=== PATIENT | male | born 1925 | race Caucasian/White ===

== ENCOUNTER 2016-11-08 12:00 | Emergency (ER) | payer MEDICARE, BC ==
[~2016-11-08] VITALS: Ht 182.9 cm; Wt 90.7 kg
[~2016-11-08 12:00] MED LIST: ATOR10TA PO; LISI10TA2 PO; TAMS0.4C97 PO
[2016-11-08 12:48] LABS: BASO # 0.1 x10^3/uL (0.0-0.2); BASO % 1 % (0-3); EOS # 0.3 x10^3/uL (0.0-0.7); EOS % 4 % (0-3); HEMATOCRIT 39.8 % (39.0-53.0); HEMOGLOBIN 13.5 g/dL (13.0-17.5); LYMPH # 1.3 x10^3/uL (1.0-4.8); LYMPH % 15 % (24-48); MEAN CORPUSCULAR HEMOGLOBIN 31 pg (25-35); MEAN CORPUSCULAR HGB CONC 34 g/dL (31-37); MEAN CORPUSCULAR VOLUME 93 fL (79-100); MONO # 0.6 x10^3/uL (0.0-1.1); MONO % 7 % (0-9); NEUT # 6.5 x10^3uL (1.8-7.7); NEUT % 74 % (31-73); PLATELET COUNT 185 x10^3/uL (140-400); RED BLOOD COUNT 4.29 x10^6/uL (4.30-5.70); RED CELL DISTRIBUTION WIDTH 13.4 % (11.5-14.5); WHITE BLOOD COUNT 8.9 x10^3/uL (4.0-11.0)
[2016-11-08 13:04] LABS: ALBUMIN 3.6 g/dL (3.4-5.0); CALCIUM 8.6 mg/dL (8.5-10.1); CREATININE 1.8 mg/dL (0.7-1.3); GFR 35.7; POTASSIUM 4.5 mmol/L (3.5-5.1); TOTAL PROTEIN 7.2 g/dL (6.4-8.2)
[2016-11-08 13:19] LABS: TOTAL BILIRUBIN 0.4 mg/dL (0.2-1.0)
--- NOTE | 2016-11-08 13:31 | ED.ADGEN ---
Past History Past Medical History: No Pertinent History Past Surgical History: Appendectomy, Knee Replacement Alcohol Use: None Drug Use: None Adult General Chief Complaint Chief Complaint Left hip/pelvic pain HPI HPI Patient is a 89-year-old male presents with left pelvic pain 5 days after accidentally tripping over a garbage can and landing on her left hip. Patient denies pain at rest but reports pain with weightbearing. Denies hitting his head or any other injury. Patient seen at PCPs office and had outpatient x-ray suspicious of fracture and was sent to the ER for further evaluation and treatment. Patient denies other symptoms or complaints at this time. Review of Systems Review of Systems Review symptoms as prescribed. All other review symptoms are negative. Allergies Allergies Allergies Coded Allergies Type Severity Reaction Last Updated Verified No Known Drug Allergies 08/11/13 No Physical Exam Physical Exam Constitutional: Well developed, well nourished, no acute distress, non-toxic appearance. HENT: Normocephalic, atraumatic, bilateral external ears normal, oropharynx moist, no oral exudates, nose normal. Eyes: PERRLA, EOMI, conjunctiva normal, no discharge. Neck: Normal range of motion, no tenderness, supple, no stridor. Cardiovascular:Heart rate regular rhythm, no murmur. Lungs & Thorax: Bilateral breath sounds clear to auscultation. Abdomen: Bowel sounds normal, soft, no tenderness, no masses, no pulsatile masses. Skin: Warm, dry, no erythema, no rash. Extremities: No tenderness, left hip, soft tissue tenderness, no deformity rotation or leg shortening. No pain on range of motion. Skin tear right tricep, multiple healing abrasions to knees. Neurologic: Alert and oriented X 3, lower extremity, no motor weakness or loss of sensation. Psychologic: Affect normal, judgement normal, mood normal. Current Patient Data Vital Signs Vital Signs Date Time Temp Pulse Resp B/P Pulse Ox O2 Delivery O2 Flow Rate FiO2 11/08/16 12:00 97.0 75 20 94 Room Air Lab Results Laboratory Tests Test 11/08/16 12:24 White Blood Count 8.9x10^3/uL (4.0-11.0) Red Blood Count 4.29x10^6/uL (4.30-5.70) L Hemoglobin 13.5g/dL (13.0-17.5) Hematocrit 39.8% (39.0-53.0) Mean Corpuscular Volume 93fL (79-100) Mean Corpuscular Hemoglobin 31pg (25-35) Mean Corpuscular Hemoglobin Concent 34g/dL (31-37) Red Cell Distribution Width 13.4% (11.5-14.5) Platelet Count 185x10^3/uL (140-400) Neutrophils (%) (Auto) 74% (31-73) H Lymphocytes (%) (Auto) 15% (24-48) L Monocytes (%) (Auto) 7% (0-9) Eosinophils (%) (Auto) 4% (0-3) H Basophils (%) (Auto) 1% (0-3) Neutrophils # (Auto) 6.5x10^3uL (1.8-7.7) Lymphocytes # (Auto) 1.3x10^3/uL (1.0-4.8) Monocytes # (Auto) 0.6x10^3/uL (0.0-1.1) Eosinophils # (Auto) 0.3x10^3/uL (0.0-0.7) Basophils # (Auto) 0.1x10^3/uL (0.0-0.2) Sodium Level 141mmol/L (136-145) Potassium Level 4.5mmol/L (3.5-5.1) Chloride Level 107mmol/L (98-107) Carbon Dioxide Level 29mmol/L (21-32) Anion Gap 5 (6-14) L Blood Urea Nitrogen 27mg/dL (8-26) H Creatinine 1.8mg/dL (0.7-1.3) H Estimated GFR (Cockcroft-Gault) 35.7 BUN/Creatinine Ratio 15 (6-20) Glucose Level 106mg/dL (70-99) H Calcium Level 8.6mg/dL (8.5-10.1) Total Bilirubin 0.4mg/dL (0.2-1.0) Aspartate Amino Transferase (AST) 23U/L (15-37) Alanine Aminotransferase (ALT) 31U/L (16-63) Alkaline Phosphatase 94U/L (46-116) Total Protein 7.2g/dL (6.4-8.2) Albumin 3.6g/dL (3.4-5.0) Albumin/Globulin Ratio 1.0 (1.0-1.7) EKG EKG [] Radiology/Procedures Radiology/Procedures [CT pelvis only: No obvious acute fracture, right inguinal hernia present] Impressions: Left hip pain without radiologic evidence of fracture Course & Med Decision Making Course & Med Decision Making Pertinent Labs and Imaging studies reviewed. (See chart for details) [Basic labs reviewed. Recommend PCP follow-up for reevaluation of hip and review of lab. Case reviewed with Dr. Jacobsen who is aware that patient may require MRI if pain persists.] Final Impression Final Impression [#1 left hip pain #2 chronic renal insufficiency] Problems: Dragon Disclaimer Dragon Disclaimer This electronic medical record was generated, in whole or in part, using a voice recognition dictation system. SILVANO NEWTON DO Nov 08, 2016 13:31
--- NOTE | 2016-11-08 13:31 | RAD ---
CT study of the pelvis without contrast Clinical indications: Left groin pain and pelvic pain for 4 days. Patient fell on Friday, November 04, 2016. Technique: Noncontrast helical CT scanning of the pelvis was performed from the iliac crest down through the perineum. PQRS Compliance Statement: One or more of the following individualized dose reduction techniques were utilized for this examination: 1. Automated exposure control 2. Adjustment of the mA and/or kV according to patient size 3. Use of iterative reconstruction technique Findings: No fracture or osteolytic process or displacement is seen. Fusion of L4 and L5 is seen with anterolisthesis. Retrolisthesis of L5-S1 is seen. Degenerative disc space narrowing and endplate spurring is seen at L3-4 down through L5-S1. A right inguinal hernia is seen. A loop of small bowel is seen extending into the inguinal canal. No obstructive bowel pattern or bowel wall thickening or mesenteric inflammatory change is seen. Sigmoid diverticulosis is seen without diverticulitis. Urinary bladder wall is smooth. Prostate gland is mildly enlarged and indents the floor of the urinary bladder. Transverse dimension of the prostate gland is 5.1 cm. No enlarged pelvic lymphadenopathy is seen. IMPRESSION: No acute fracture. Right inguinal hernia containing a loop of small bowel. No obstructive bowel pattern or inflammatory change or wall thickening is seen here otherwise. Mild enlargement of the prostate gland.
[2016-11-08 14:10] VITALS: BP 141/70
== END 2016-11-08 14:10 | disposition home or self-care (01) ==
LOC: ER 12:00
DX: M25.552 Pain in left hip (principal); R10.2 Pelvic and perineal pain; N18.9 Chronic kidney disease, unspecified; W18.09XA Striking against other object with subsequent fall, initial encounter; Y93.89 Activity, other specified; Y99.8 Other external cause status; Y92.89 Other specified places as the place of occurrence of the external cause
CPT/HCPCS: 36415; 72192; 80053; 85027; 99285-25

== ENCOUNTER 2017-01-18 09:31 | Emergency (ER) | payer MEDICARE, BC ==
--- NOTE | 2017-01-18 09:52 | PHYS DOC ---
Past History Past Medical History: Other Additional Past Medical Histor: patient does have a history of foot drop Past Surgical History: Appendectomy, Knee Replacement Alcohol Use: None Drug Use: None Adult General Chief Complaint Chief Complaint: ABDOMINAL PAIN [facility] This is a pleasant 89-year-old male with a history of appendicitis removed by appendectomy and hernia in the past presents with lower abdominal pain that began this morning while going to [employer]. The pain is relatively constant but does wax and wane with no complete resolution in the left lower right lower quadrant. Is septic as achy pain sharp stabbing waves. There is no radiation to the back there is no UTI symptoms no diarrhea. Patient does have a history of constipation and urinary incontinence secondary to bladder issues. She recent trauma, UTI symptoms, fevers, chills, or vomiting. He does tell us that he is very nauseated. He denies any chest pain, shortness of breath, lightheaded dizziness did become very diaphoretic with away the pain. He denies any prior symptoms like this in the past. Appetite has been normal he actually ate breakfast consisting of [employer] this morning. Review of Systems Review of Systems Constitutional: Denies fever or chills [] Eyes: Denies change in visual acuity, redness, or eye pain [] HENT: Denies nasal congestion or sore throat [] Respiratory: Denies cough or shortness of breath [] Cardiovascular: No additional information not addressed in HPI [] GI: He does complain of nausea, abdominal pain and history of constipation. No diarrhea or loose stools. : Denies dysuria or hematuria [] Musculoskeletal: Denies back pain or joint pain [] Integument: Denies rash or skin lesions [] Neurologic: Denies headache, focal weakness or sensory changes [] Endocrine: Denies polyuria or polydipsia [] Allergies Allergies Allergies Coded Allergies Type Severity Reaction Last Updated Verified No Known Drug Allergies 08/11/13 No Physical Exam Physical Exam Constitutional: Well developed, well nourished, no acute distress, non-toxic appearance. [] HENT: Normocephalic, atraumatic, bilateral external ears normal, oropharynx moist, no oral exudates, nose normal. [] Eyes: PERRLA, EOMI, conjunctiva normal, no discharge. [] Neck: Normal range of motion, no tenderness, supple, no stridor. [] Cardiovascular:Heart rate regular rhythm, no murmur [] Lungs & Thorax: Bilateral breath sounds clear to auscultation [] Abdomen: Bowel sounds present patient's abdomen is very tender in the right lower left lower quadrant with some voluntary guarding no rebound or organomegaly. Patient has noted well-controlled scar from the right prior appendectomy. Large mass noted in the right inguinal crease along with into the scrotum is tender it is firm. This does reproduce some of his discomfort. Skin: Warm, dry, no erythema, no rash. [] Back: No tenderness, no CVA tenderness. [] Extremities: No tenderness, no cyanosis, no clubbing, ROM intact, no edema. [] Neurologic: Alert and oriented X 3, normal motor function, normal sensory function, no focal deficits noted. Except for foot drop as explained in the prior history. On the right side. Psychologic: Affect normal, judgement normal, mood normal. [] Current Patient Data Lab Results Laboratory Tests Test 01/18/17 10:00 01/18/17 11:55 White Blood Count 9.9 x10^3/uL (4.0-11.0) Red Blood Count 4.53 x10^6/uL (4.30-5.70) Hemoglobin 14.0 g/dL (13.0-17.5) Hematocrit 41.6 % (39.0-53.0) Mean Corpuscular Volume 92 fL (79-100) Mean Corpuscular Hemoglobin 31 pg (25-35) Mean Corpuscular Hemoglobin Concent 34 g/dL (31-37) Red Cell Distribution Width 13.9 % (11.5-14.5) Platelet Count 203 x10^3/uL (140-400) Neutrophils (%) (Auto) 79 % (31-73) H Lymphocytes (%) (Auto) 12 % (24-48) L Monocytes (%) (Auto) 6 % (0-9) Eosinophils (%) (Auto) 3 % (0-3) Basophils (%) (Auto) 1 % (0-3) Neutrophils # (Auto) 7.9 x10^3uL (1.8-7.7) H Lymphocytes # (Auto) 1.2 x10^3/uL (1.0-4.8) Monocytes # (Auto) 0.5 x10^3/uL (0.0-1.1) Eosinophils # (Auto) 0.3 x10^3/uL (0.0-0.7) Basophils # (Auto) 0.1 x10^3/uL (0.0-0.2) Sodium Level 144 mmol/L (136-145) Potassium Level 4.2 mmol/L (3.5-5.1) Chloride Level 105 mmol/L (98-107) Carbon Dioxide Level 30 mmol/L (21-32) Anion Gap 9 (6-14) Blood Urea Nitrogen 29 mg/dL (8-26) H Creatinine 1.9 mg/dL (0.7-1.3) H Estimated GFR (Cockcroft-Gault) 33.5 BUN/Creatinine Ratio 15 (6-20) Glucose Level 113 mg/dL (70-99) H Lactic Acid Level 1.7 mmol/L (0.4-2.0) Calcium Level 8.4 mg/dL (8.5-10.1) L Magnesium Level 2.3 mg/dL (1.8-2.4) Total Bilirubin 0.4 mg/dL (0.2-1.0) Aspartate Amino Transferase (AST) 19 U/L (15-37) Alanine Aminotransferase (ALT) 29 U/L (16-63) Alkaline Phosphatase 115 U/L (46-116) Creatine Kinase 51 U/L (39-308) Creatine Kinase MB (Mass) 1.0 ng/mL (0.0-3.6) Creatine Kinase MB Relative Index 2.0 % (0-4) Troponin I Quantitative < 0.017 ng/mL (0-0.055) AX-Sjc-H-Type Natriuretic Peptide 84 pg/mL (0-449) Total Protein 6.7 g/dL (6.4-8.2) Albumin 3.6 g/dL (3.4-5.0) Albumin/Globulin Ratio 1.2 (1.0-1.7) Lipase 125 U/L (73-393) Urine Collection Type Unknown Urine Color Yellow Urine Clarity Clear Urine pH 7.0 Urine Specific [place] 1.015 Urine Protein Neg (NEG-TRACE) Urine Glucose (UA) Neg mg/dL (NEG) Urine Ketones (Stick) Neg mg/dL (NEG) Urine Blood Neg (NEG) Urine Nitrite Neg (NEG) Urine Bilirubin Neg (NEG) Urine Urobilinogen Dipstick 0.2 mg/dL (0.2 mg/dL) Urine Leukocyte Esterase Neg (NEG) Urine RBC 1-2 /HPF (0-2) Urine WBC Occ /HPF (0-4) Urine Squamous Epithelial Cells Occ /LPF Urine Bacteria 0 /HPF (0-FEW) EKG EKG [] Radiology/Procedures Radiology/Procedures [] IMAGING REPORT Signed PATIENT: QUINTON BALL ACCOUNT: [id number] : 1925 LOCATION: ER AGE: 89 SEX: M EXAM STATUS: REG ER ORD. PHYSICIAN: HARSH SANTOS MD REASON: diffuse lower abdominal pain PROCEDURE: CT ABD PELV W/ IV CONTRST ONLY EXAM: CT abdomen/pelvis with contrast. HISTORY: Right abdominal pain. TECHNIQUE: Computed tomography of the abdomen and pelvis was performed after the intravenous administration of 60 mL Omnipaque 300. COMPARISON: 11/08/2016. FINDINGS: Lung windows through the visualized portions of the bases reveal mild interstitial scarring in the bases. 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 Bone windows reveal no suspicious lesions. There is instrumented posterior fusion on the left at L4-5 with laminectomies. There is mild chronic-appearing superior plate compression deformity at L4. There is grade 1 anterolisthesis at L4-5. There is a small hiatal hernia. There is mild intrahepatic biliary dilatation in the anterior segment of the right lobe. The common duct is not dilated. Scattered pancreatic parenchymal calcifications are consistent with chronic pancreatitis. The gallbladder is unremarkable. There are no focal hepatic or splenic lesions. There are peripelvic cysts in the left kidney. The kidneys are mildly atrophic. There are no pathologically enlarged lymph nodes. A moderate right inguinal hernia contains nonobstructed small bowel loops and a small amount of ascites. Scattered small lymph nodes and stranding in the root of the mesentery most likely represent mesenteric vein and lateral. The largest nodes measure up to 12 x 7 mm. A small umbilical hernia contains only fat. The prostate is severely enlarged measuring 6 cm. The appendix is not inflamed. IMPRESSION: 1. Moderate right inguinal hernia contains nonobstructed small bowel loops and a small amount of ascites. 2. Small umbilical hernia containing only fat. 3. Small hiatal hernia. 4. A few pancreatic parenchymal calcifications are consistent with chronic pancreatitis. 5. Mild bilateral renal atrophy. 6. Severe benign prostatic hypertrophy. *One or more of the following individualized dose reduction techniques were utilized for this examination: 1. Automated exposure control. 2. Adjustment of the mA and/or kV according to patient size. 3. Use of iterative reconstruction technique. DICTATED AND SIGNED BY: LUZ ELENA HOLMAN MD DATE: 01/18/17 1209 CC: HARSH SANTOS MD; ANNELIESE COBB MD ~ Course & Med Decision Making Course & Med Decision Making Pertinent Labs and Imaging studies reviewed. (See chart for details) reviewed nursing notes vital signs upon arrival and physical exam as well as history by concern initially was adhesions causing a small bowel obstruction but given the tenderness in the right lower quadrant over his inguinal hernia I'm worried that he might have either have a incarcerated or stringy dated hernia. He'll be given pain medications fluids, nothing by mouth and completed an appropriate workup for abdominal pain. 1105 am Patient tells me that their symptoms given during CC are improved only slightly. We reviewed labs and with patient and any family at bedside. Which revealed only a slight elevated BUN/creatinine likely secondary to chronic dehydration. Patient is orally receiving a fluid of normal saline and pain medications. It is still concerning that patient's pain is still not well controlled despite having multiple doses of pain medications. Patient will go to CT scan for his abdomen and pelvis evaluation. 11:45 AM she since pain is still not improve despite multiple pain medication doses CT abdomen and pelvis although not officially read is concerning for possible right inguinal hernia incarceration. I do not see any Pneumocystis intestinalis the patient's hernia still firm and irreducible. I discussed with family need to transfer. I tried on several occasions to reduce his hernia with direct pressure and pain medications to no success. 12:[address] scan returned demonstrating small umbilical hernia containing only fat, small hiatal hernia, a few pancreatic parenchymal calcifications consistent with chronic pancreatic tenderness, bilateral renal atrophy, and a significant right inguinal hernia containing furnace combustion tester to small bowel loops and a small amount of ascites with no evidence of stangulation or compromise of blood flow. This patient is beginning to form doses of analgesic control without much improvement of his pain. Given how it firm and tender his inguinal hernia is at this time my concern is that it's become incarcerated and will require either surgical or general anesthesia to reduce it. My concern is as well we do not have surgical services here at this facility of the weekend. I would advise family and they have agreed transferred to [facility] with a surgical Ability if they cannot reduce this in 1 hernia would be appropriate. Call to internal medicine 12:25 PM Health Communications Specialist note: IM Dr. Brennan paged at 12:25 Health Communications Specialist called at of the service IM Consult called back at 12:45 will accept as long as GS willing to see Discussed the case I presented and they agreed with admission. Time of acceptance 12:45 Health Communications Specialist note: GS at 12:45 Health Communications Specialist called at of the service Dr. Jacob 1:20 pm happy to see in consultation Consult called back at 1:20 pm Discussed the case I presented and they agreed with admission. Impression: Abdominal pain, hypertension, incarcerated right inguinal hernia Disposition: Discharge transferred to [facility] for general surgery evaluation internal medicine I spent approximately 45-50 minutes working and engaged directly in the patient care providing critical care evaluation this includes but not limited to time spent engaged in work directly related to the individual patients care. I spent time at the bedside, reviewing test results, discussing the case with staff, documenting the medical record and time spent with EMS discussing specific treatment issues when the patient presented and during his evaluation. Dragon Disclaimer Dragon Disclaimer This chart was dictated in whole or in part using Voice Recognition software in a busy, high-work load, and often noisy Emergency Department environment. It may contain unintended and wholly unrecognized errors or omissions. Departure Departure: Impression: Primary Impression: Inguinal hernia Additional Impressions: Incarcerated inguinal hernia, unilateral Abdominal pain Disposition: ADMITTED INPATIENT Condition: GUARDED Referrals: ANNELIESE COBB MD (PCP) Problem Qualifiers HARSH SANTOS MD Jan 18, 2017 09:52
[2017-01-18] MEDS ORDERED: 0.9 % SODIUM CHLORIDE 10 ML DISP.SYRIN. IV PRN (10:00)
[2017-01-18] MEDS ORDERED: IOHEXOL 300 MG/ML 75 ML VIAL. IV ONE (10:00)
[2017-01-18] MEDS: fentaNYL PF 100 MCG/2 ML VIAL IV PRN ×4 (10:00→11:49)
[2017-01-18] MEDS ORDERED: CONTRAST GIVEN MC PRN (10:00)
[2017-01-18] MEDS ORDERED: ONDANSETRON PF 4 MG/2 ML VIAL. IV ONE (10:00)
[2017-01-18] MEDS ORDERED: IV NORMAL SALINE 1,000ML 1,000 ML IV SCH (10:00)
--- NOTE | 2017-01-18 10:00 | EKG ---
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
[2017-01-18 10:12] LABS: BASO # 0.1 x10^3/uL (0.0-0.2); BASO % 1 % (0-3); EOS # 0.3 x10^3/uL (0.0-0.7); EOS % 3 % (0-3); HEMATOCRIT 41.6 % (39.0-53.0); LYMPH # 1.2 x10^3/uL (1.0-4.8); LYMPH % 12 % (24-48); MEAN CORPUSCULAR HEMOGLOBIN 31 pg (25-35); MEAN CORPUSCULAR HGB CONC 34 g/dL (31-37); MEAN CORPUSCULAR VOLUME 92 fL (79-100); MONO # 0.5 x10^3/uL (0.0-1.1); MONO % 6 % (0-9); NEUT # 7.9 x10^3uL (1.8-7.7); NEUT % 79 % (31-73); PLATELET COUNT 203 x10^3/uL (140-400); RED BLOOD COUNT 4.53 x10^6/uL (4.30-5.70); RED CELL DISTRIBUTION WIDTH 13.9 % (11.5-14.5); WHITE BLOOD COUNT 9.9 x10^3/uL (4.0-11.0)
[2017-01-18 10:47] LABS: ALBUMIN 3.6 g/dL (3.4-5.0); ALBUMIN/GLOBULIN RATIO 1.2 (1.0-1.7); CALCIUM 8.4 mg/dL (8.5-10.1); CREATININE 1.9 mg/dL (0.7-1.3); GFR 33.5; MAGNESIUM 2.3 mg/dL (1.8-2.4); POTASSIUM 4.2 mmol/L (3.5-5.1); TOTAL BILIRUBIN 0.4 mg/dL (0.2-1.0); TOTAL PROTEIN 6.7 g/dL (6.4-8.2)
[2017-01-18 12:19] LABS: BACTERIA,URINE 0 /HPF (0-FEW); BILIRUBIN,URINE NEG (NEG); CLARITY,URINE CLEAR; COLOR,URINE YELLOW; GLUCOSE,URINE NEG (NEG); NITRITE,URINE NEG (NEG); SQUAMOUS EPITHELIAL CELL,UR OCC /LPF; UROBILINOGEN,URINE 0.2 mg/dL (0.2 mg/dL); WBC,URINE OCC /HPF (0-4)
--- NOTE | 2017-01-18 12:25 | RAD ---
EXAM: CT abdomen/pelvis with contrast. HISTORY: Right abdominal pain. TECHNIQUE: Computed tomography of the abdomen and pelvis was performed after the intravenous administration of 60 mL Omnipaque 300. COMPARISON: 11/08/2016. FINDINGS: Lung windows through the visualized portions of the bases reveal mild interstitial scarring in the bases. 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 Bone windows reveal no suspicious lesions. There is instrumented posterior fusion on the left at L4-5 with laminectomies. There is mild chronic-appearing superior plate compression deformity at L4. There is grade 1 anterolisthesis at L4-5. There is a small hiatal hernia. There is mild intrahepatic biliary dilatation in the anterior segment of the right lobe. The common duct is not dilated. Scattered pancreatic parenchymal calcifications are consistent with chronic pancreatitis. The gallbladder is unremarkable. There are no focal hepatic or splenic lesions. There are peripelvic cysts in the left kidney. The kidneys are mildly atrophic. There are no pathologically enlarged lymph nodes. A moderate right inguinal hernia contains nonobstructed small bowel loops and a small amount of ascites. Scattered small lymph nodes and stranding in the root of the mesentery most likely represent mesenteric vein and lateral. The largest nodes measure up to 12 x 7 mm. A small umbilical hernia contains only fat. The prostate is severely enlarged measuring 6 cm. The appendix is not inflamed. IMPRESSION: 1. Moderate right inguinal hernia contains nonobstructed small bowel loops and a small amount of ascites. 2. Small umbilical hernia containing only fat. 3. Small hiatal hernia. 4. A few pancreatic parenchymal calcifications are consistent with chronic pancreatitis. 5. Mild bilateral renal atrophy. 6. Severe benign prostatic hypertrophy. *One or more of the following individualized dose reduction techniques were utilized for this examination: 1. Automated exposure control. 2. Adjustment of the mA and/or kV according to patient size. 3. Use of iterative reconstruction technique.
[2017-01-18 13:00] VITALS: BP 172/94
== END 2017-01-18 13:30 | disposition other institution (70) ==
LOC: ER 09:31
DX: K40.30 Unilateral inguinal hernia, with obstruction, without gangrene, not specified as recurrent (principal); I10 Essential (primary) hypertension
CPT/HCPCS: 36415; 74177; 80053; 81001; 82553; 83605; 83690; 83735; 83880; 84484; 85027; 93005; 96361; 96374; 96375; 96376; 99291; J2405; J3010; Q9967; J7030